=== PATIENT | male | born 1985 | race Caucasian/White ===

== ENCOUNTER 2023-02-22 14:10 | Emergency (ER) | payer SELFPAY ==
[2023-02-22 14:12] VITALS: BP 146/84; PULSE 58; RESP 18; TEMP 36.7; O2SAT 99; BMI 25.8
--- NOTE | 2023-02-22 14:28 | EXP.UTC ---
Discharge Plan Disposition Patient Disposition: Home, Self-Care Condition: Good Prescriptions Prescriptions: New azithromycin [Zithromax] 250 mg tablet 250 mg PO UD DOSE PK Qty: 6 0RF Rx Instructions: Take two (2) tablets today, then one (1) tablet days #2 thru #5 benzonatate [benzonatate] 100 mg capsule 100 mg PO TIDP PRN (Reason: Cough) Qty: 30 0RF ondansetron 4 mg Tablet,Disintegrating 4 mg PO Q8H PRN (Reason: Nausea) Qty: 12 0RF Referrals Follow up/Referrals: Provider,Referral, MD [Primary Care Provider] - See instructions Activity Restrictions/Add. Instructions Additional Instructions/Restrictions: Drink plenty of fluids. Take tylenol or ibuprofen for pain or fever. Take the medications as directed. Follow up with your regular doctor. GO TO THE ER FOR ANY WORSENING SYMPTOMS Clinical Impressions Clinical Impression: Sinusitis, Acute viral syndrome Stand Alone Forms Stand Alone Forms: Work/School Release Instructions Patient Instructions: Sinusitis, DI for Sinusitis, DI for Viral Syndrome Discharge ED Provider: Dennys Chen [facility] General Stated complaint: cough, Diarrhea, Runny nose and LAMBERT Time Seen by Provider: 02/22/23 14:28 History of Present Illness Provider Complaint: He states that he has had sinus congestion, sore throat, malaise, body aches and chills for the past 2 days. Related Data Previous Rx's Medication Instructions Recorded azithromycin 250 mg tablet 250 mg PO UD DOSE PK #6 tabs 02/22/23 (Zithromax) benzonatate 100 mg capsule 100 mg PO TIDP PRN Cough #30 caps 02/22/23 ondansetron 4 mg disintegrating 4 mg PO Q8H PRN Nausea #12 tabs 02/22/23 tablet Allergies Allergy/AdvReac Type Severity Reaction Status Date / Time No Known Allergies Allergy Verified 02/22/23 14:34 [facility] Disclaimer: The information contained in this section may have been updated after the patient was seen, as this information can be updated by other users. Social History Smoking Status: Former smoker alcohol intake: never current occupational status: employed Travel in the last 8 weeks: None ROS Obtained: Yes All systems reviewed & no additional complaints except as documented Constitutional Constitutional: Reports chills and Reports fever(s) Eyes Eyes: Denies eye discharge ENT Ears, Nose, Mouth, and Throat: Reports as per HPI Cardiovascular Cardiovascular: Denies chest pain Respiratory Respiratory: Denies chest congestion and Reports cough Gastrointestinal Gastrointestingal: Reports nausea; Denies abdominal pain, constipation, cramping, diarrhea or vomiting Musculoskeletal Musculoskeletal: Denies arthralgias Integumentary/Breasts Skin/Breast: Denies rash Neurologic Neurologic: Denies paresthesias Physical Exam General General appearance: alert and in no apparent distress Head Head exam: atraumatic, normocephalic and normal inspection Eye Eye exam: Present normal appearance, PERRL and EOMI ENT ENT exam: Present normal exam, normal oropharynx, mucous membranes moist, TM's normal bilaterally and normal external ear exam Neck Neck exam: Present normal inspection, full ROM and trachea midline; Absent meningismus or lymphadenopathy Chest Chest inspection: Present normal inspection and symmetric chest wall rise; Absent tenderness Respiratory Respiratory exam: Present normal lung sounds bilaterally; Absent respiratory distress Cardiovascular Cardiovascular exam: Present regular rate and normal rhythm; Absent JVD Abdominal Exam Abdominal exam: Present soft and normal bowel sounds; Absent distention, tenderness or guarding Extremities Exam Extremities exam: Present normal inspection, full ROM and normal capillary refill; Absent calf tenderness Back Exam Back exam: Present normal inspection; Absent tenderness Neurological Exam Neurological exam: Present alert and oriented X3 Psychiatric Psychiatric exam: Present normal affect and normal mo
[2023-02-22 15:20] VITALS: BP 146/84; PULSE 58; RESP 18; TEMP 36.7; O2SAT 99
== END 2023-02-22 15:21 | disposition home or self-care (01) ==
PROVIDERS: Emergency Provider Nurse Practitioner Family
DX: U07.1 COVID-19 (principal); J01.90 Acute sinusitis, unspecified; R53.81 Other malaise; Z87.891 Personal history of nicotine dependence
CPT/HCPCS: 99204; 99212; G0463

== ENCOUNTER 2023-10-02 22:24 | Emergency (ER) | payer SELFPAY ==
[2023-10-02 22:28] VITALS: BP 122/86; PULSE 97; RESP 18; TEMP 36.8; O2SAT 98; BMI 30.5
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
[2023-10-02] MEDS: KETOROLAC 30MG/ML VIAL 30 MG IM (22:53)
[2023-10-02] MEDS: OXYCODONE 5MG IMMEDIATE RELEASE TABLET 5 MG PO (22:54)
[2023-10-02] MEDS: ACETAMINOPHEN 500MG TAB 1000 MG PO (22:54)
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
[2023-10-02] MEDS: TET/DIPHTH/PERT-ADULT 0.5ML SYRINGE 0.5 ML IM (23:41)
[2023-10-03 00:18] VITALS: BP 133/77; PULSE 74; RESP 20; TEMP 36.8; O2SAT 98
== END 2023-10-03 00:28 | disposition home or self-care (01) ==
PROVIDERS: Emergency Provider Emergency Medicine; PCP Nurse Practitioner Family
DX: S52.515A Nondisplaced fracture of left radial styloid process, initial encounter for closed fracture (principal); S80.12XA Contusion of left lower leg, initial encounter; F17.210 Nicotine dependence, cigarettes, uncomplicated; V86.56XA Driver of dirt bike or motor/cross bike injured in nontraffic accident, initial encounter; Z23 Encounter for immunization
CPT/HCPCS: 29125; 73080; 73090; 73110; 73130; 73502; 73552; 73562; 73590; 73610; 90471; 90715; 96372; 99285

== ENCOUNTER 2023-10-05 14:44 | Outpatient (CLI) | payer SELFPAY | END 2023-10-05 23:59 | LOC: RAD 14:45 | PROVIDERS: PCP Nurse Practitioner Family; Visit Provider Orthopaedic Surgery | DX: M25.532 Pain in left wrist (principal) ==

== ENCOUNTER 2023-10-14 15:37 | Outpatient (CLI) | payer OTHER, SELFPAY ==
[2023-10-14 15:47] LABS: Basophils # 0.1 K/mm3 (0-0.2); Eosinophils # 0.3 K/mm3 (0.0-0.4); Eosinophils % 3.5 % (0.1-12.0); Hematocrit 44.2 % (42.0-52.0); Hemoglobin 14.9 g/dL (14.1-18.0); Lymphocytes # 3.2 K/mm3 (0.7-4.5); Lymphocytes % 34.8 % (10-50); Mean Corpuscular HGB Conc 33.7 g/dL (31.8-35.4); Mean Corpuscular Hemoglobin 30.9 pg (27.0-31.2); Mean Corpuscular Volume 91.6 fl (80-94); Mean Platelet Volume 7.8 fl (7.4-10.4); Monocytes # 0.5 K/mm3 (0.1-1.0); Monocytes % 5.9 % (1.7-9.3); Neutrophils % 54.9 % (37.0-80.0); Platelet Count 331 K/mm3 (142-424); Red Blood Count 4.83 M/mm3 (4.60-6.20); Red Cell Distribution Width 13.3 % (11.5-17.5); White Blood Count 9.1 K/mm3 (4.8-10.8)
[2023-10-14 16:37] LABS: Alanine Aminotransferase 35 U/L (12-78); Albumin Level 4.3 g/dl (3.5-5.0); Albumin/Globulin Ratio 1.7 (1.1-1.8); Alkaline Phosphatase 83 U/L (38-126); Anion Gap 10.8 mEq/L (5-15); Aspartate Amino Transferase 37 U/L (17-59); Bilirubin,Total 0.3 mg/dl (0.2-1.3); Blood Urea Nitrogen 10 mg/dl (9-20); Calcium 9.9 mg/dl (8.4-10.2); Carbon Dioxide 28 mmol/L (22.0-30.0); Chloride 106 mmol/L (98-107); Chol/HDL Ratio 7.9 (1-3.5); Cholesterol 190 mg/dl (140-200); Estimated Glomerular Filt Rate 109 ml/min (>60); GFR (African American) 132 ML/MIN (>60); Globulin 2.6 g/dL (1.3-3.2); Glucose 110 mg/dl (74-100); HDL Cholesterol 24 mg/dl (40-60); Potassium 4.8 mmoL/L (3.5-5.1); Sodium 140 mmol/L (136-145); Total Protein,Serum 6.9 g/dl (6.3-8.2); Triglycerides 312 mg/dl (30-150); VLDL Cholesterol 62 mg/dL (0-40)
[2023-10-14 16:47] LABS: Direct LDL Cholesterol 100.25 mg/dL (100-129)
[2023-10-14 16:59] LABS: 25-OH Vitamin D, Total < 12.8 ng/mL (30-100)
[2023-10-14 17:03] LABS: Free T4 (Free Thyroxine) 1.03 ng/dl (0.78-2.19)
[2023-10-14 17:07] LABS: Hemoglobin A1C 5.7 % (4.0-6.0)
[2023-10-14 17:23] LABS: Thyroid Stimulating Hormone 1.87 uIU/mL (0.465-4.68)
[2023-10-14 17:42] LABS: Vitamin B12 694 pg/mL (239-931)
== END 2023-10-14 23:59 | disposition home or self-care (01) ==
LOC: LAB.DROPOF 15:37
PROVIDERS: PCP Nurse Practitioner Family; Visit Provider Nurse Practitioner Family
DX: R53.83 Other fatigue (principal); M79.605 Pain in left leg; M79.89 Other specified soft tissue disorders; E55.9 Vitamin D deficiency, unspecified; R73.9 Hyperglycemia, unspecified; S52.512A Displaced fracture of left radial styloid process, initial encounter for closed fracture; F17.210 Nicotine dependence, cigarettes, uncomplicated; V86.56XA Driver of dirt bike or motor/cross bike injured in nontraffic accident, initial encounter
CPT/HCPCS: 80053; 80061; 82306; 82607; 83036; 84439; 84443; 85025; 85378

== ENCOUNTER 2023-10-15 15:40 | Outpatient (CLI) | payer OTHER, SELFPAY ==
--- NOTE | 2023-10-15 15:45 | CT_ITS ---
FINAL REPORT TECHNIQUE: Axial imaging of the left wrist was obtained without contrast. Reformatted images were also obtained and reviewed. This study was performed with techniques to keep radiation doses as low as reasonably achievable (ALARA). Individualized dose reduction techniques using automated exposure control or adjustment of mA and/or kV according to the patient's size were employed. CLINICAL HISTORY: wrist fracture FINDINGS: There is a fracture at the base of the radial styloid extending to the radiocarpal joint. There is 3 mm of anterior displacement of the fracture fragment. There is also fracture of the proximal fourth metacarpal and a chip fracture of the proximal fifth metacarpal. A probable, nondisplaced fracture is seen of the proximal third metacarpal. IMPRESSION: Fractures as above. Reviewed, Interpreted and Dictated by Angel Win III, MD Transcribed by Rachel Martin Authenticated and [facility]
== END 2023-10-15 23:59 | disposition home or self-care (01) ==
LOC: RAD 15:40
PROVIDERS: PCP Nurse Practitioner Family; Visit Provider Physician Assistant Surgical
DX: M25.532 Pain in left wrist (principal); S62.102A Fracture of unspecified carpal bone, left wrist, initial encounter for closed fracture
CPT/HCPCS: 73200

== ENCOUNTER 2023-10-18 12:59 | Outpatient (CLI) | payer OTHER, SELFPAY ==
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
--- OUTSIDE RECORDS SUMMARY | 2023-10-18 13:01 | XMS_ITS ---
Author Name Unknown Address [address] [place] [address] Phone Organization [facility] Address [address] [place] [address] Phone Care Team Providers Care Development Architect Name Role Phone Prabhakar CARDENAS, Gustavo Red Unavailable [phone] NO, PCP Unavailable Unavailable Reason for Referral Date Encounter Description Provider Reason for Referral 01/20/22 FOLLOW UP/EST Josh Acosta PA-C Referral To Physician 09/11/21 Post Op Josh Acosta PA-C Refe rral To Physician 05/14/21 WC FOLLOW UP/EST Gustavo Radford MD Referral To Physician - see pcp for elevated BP 02/03/21 WC FOLLOW UP/EST Gustavo Radford MD Referral To Physician - see pcp for elevated BP 11/27/20 WC FOLLOW UP/EST Gustavo Radford MD Referral To Physician - see pcp for elevated BP 06/14/20 2ND OPINION Nabil Alford MD Referr al To Physician - to see pcp for bp ~ Problems Includes: Active, inactive, and resolved Problems All Visits Onset Date Resolved Date Provider Condition S tatus Joint Pain, Localized in the Shoulder 02/26/2020 Gustavo Radford MD Active Last Documented On 0 8:39AM ; [facility] Plan of Treatment Pending Tests Order Diagnosis Results Due Ordering P rovider Radiology - MRI MRI Shoulder 03/30/22 Gustavo Radford MD Last Documented On 2 1:13PM ; [facility] Instructions to patient Intervention and counseling on cessation of tobacco use Last Documented On 3 1:33PM ; [facility] Lose weight Last Documented On 3 1:33PM ; [facility] Intervention and counseling on cessation of tobacco use Last Documented On 2 10:06AM ; [facility] Lose weight Last Documented On 2 10:06AM ; [facility] Intervention and counseling on cessation of tobacco use Last Documented On 2 9:39AM ; [facility] Lose weight Last Documented On 2 9:39AM ; [facility] Intervention and counseling on cessation of tobacco use Last Documented On 2 2:50PM ; [facility] Lose weight Last Documented On 2 2:50PM ; [facility] Intervention and counseling on cessation of tobacco use Last Documented On 2 12:52PM ; [facility] Lose weight Last Documented On 2 12:52PM ; [facility] Intervention and counseling on cessation of tobacco use Last Documented On 2 10:43AM ; [facility] Lose weight Last Documented On 2 10:43AM ; [facility] Intervention and counseling on cessation of tobacco use Last Documented On 2 9:35AM ; [facility] Lose weight Last Documented On 2 9:35AM ; [facility] Intervention and counseling on cessation of tobacco use Last Documented On 2 1:53PM ; [facility] Lose weight Last Documented On 2 1:47PM ; [facility] Lose weight Last Documented On 1 10:40AM ; [facility] Lose weight Last Documented On 1 10:27AM ; [facility] Lose weight Last Documented On 1 8:39AM ; [facility] Intervention and counseling on cessation of tobacco use Last Documented On 0 10:09AM ; [facility] Lose weight Last Documented On 0 3:45PM ; [facility] Assessments Includes: Assessments for all patient encounters No Assessments Recorded Instructions Includes: Instructions for all patient encounters Instructions to patient Intervention and counseling on cessation of tobacco use Last Documented On 3 1:33PM ; [facility] Lose weight Last Documented On 3 1:33PM ; [facility] Intervention and counseling on cessation of tobacco use Last Documented On 2 10:06AM ; [facility] Lose weight Last Documented On 2 10:06AM ; [facility] Intervention and counseling on cessation of tobacco use Last Documented On 2 9:39AM ; [facility] Lose weight Last Documented On 2 9:39AM ; [facility] Intervention and counseling on cessation of tobacco use Last Documented On 2 2:50PM ; [facility] Lose weight Last Documented On 2 2:50PM ; [facility] Intervention and counseling on cessation of tobacco use Last Documented On 2 12:52PM ; [facility] Lose weight Last Documented On 2 12:52PM ; [facility] Intervention and counseling on cessation of tobacco use Last Documented On 2 10:43AM ; [facility] Lose weight Last Documented On 2 10:43AM ; [facility] Intervention and counseling on cessation of tobacco use Last Documented On 2 9:35AM ; [facility] Lose weight Last Documented On 2 9:35AM ; [facility] Intervention and counseling on cessation of tobacco use Last Documented On 2 1:53PM ; [facility] Lose weight Last Documented On 2 1:47PM ; [facility] Lose weight Last Documented On 1 10:40AM ; [facility] Lose weight Last Documented On 1 10:27AM ; [facility] Lose weight Last Documented On 1 8:39AM ; [facility] Intervention and counseling on cessation of tobacco use Last Documented On 0 10:09AM ; [facility] Lose weight Last Documented On 0 3:45PM ; [facility] Medical Equipment - Implanted Devices Includes: Current and historical Devices No Medical Equipment Recorded Medications Includes: Current and historical Medications Current Medications (continue as prescribed) Gabapentin 300 MG Oral Capsule 12/18/2021 Provider: Diagnosis: Last Documented On 2 1:04PM By Naz Kerr ; [facility] Meloxicam 15 MG Oral Tablet 09/25/2021 Provider: Gustavo Radford MD Diagnosis: Last Documented On 2 1:04PM By Naz Kerr ; [facility] Gabapentin 300 MG Oral Capsule 11/27/2020 Provider: Diagnosis: Last Documented On 1 8:37AM By Sophia Garrido ; [facility] Past Medications on file Mobic 15 MG Oral Tablet 09/25/2021 - 10/25/2021 Provid er: Gustavo Radford MD Diagnosis: 1 TABLET BY MOUTH ONCE A DAY Last Documented On 2 3:29PM By Sophia Garrido ; [facility] Cyclobenzaprine HCl 10 MG Or al Tablet 09/11/2021 - 10/11/2021 Provider: Josh arzate PA-C Diagnosis: 1 PO TID Last Documented On 2 9:49AM By Shazia Tesfaye ; [facility] HYDROcodone-Acetaminophen 5- 325 MG Oral Tablet 09/11/2021 - 09/21/2021 Provider: Gustavo Radford MD Diagnosis: three times a day Last Documented On 2 10:51AM By Gustavo Radford ; [facility] Ondansetron HCl 4 MG Oral Tablet 08/26/2021 - 09/05/2021 Provider: Gustavo ortiz MD Diagnosis: 1 q 8 hours prn post op nausea Last Documented On 2 7:22AM By Gustavo Radford ; [facility] oxyCODONE HCl 5 MG Oral Tablet 08/26/2021 - 08/31/2021 Provider: Gustavo ortiz MD Diagnosis: 1-2 po q 4-6h prn post op pain Last Documented On 2 7:22AM By Gustavo Radford ; [facility] Medications Administered Includes: Administered Medications in patient's chart No Administered Medications Recorded Results Includes: Results from 10/17/2022 through 10/18/2023 No Results Recorded For Specified Dates History of Present Illness History of Present Illness not supported for this document type No History of Present Illness Recorded Social History Description Last Updated Tobacco use 03/16/2022 Last Documented On 2 1:13PM ; [facility] Is a smoker 01/20/2022 Last Documented On 2 1:22PM ; [facility] Caffeine use 01/20/2022 Last Documented On 2 1:22PM ; [facility] No recent change in diet 01/20/2022 Last Documented On 2 1:22PM ; [facility] Not exercising regularly 01/20/2022 Last Documented On 2 1:22PM ; [facility] Not using alcohol 01/20/2022 Last Documented On 2 1:22PM ; [facility] Not using drugs 01/20/2022 Last Documented On 2 1:22PM ; [facility] Smoker 01/20/2022 Last Documented On 2 1:22PM ; [facility] Yes, current smoker. 01/20/2022 Last Documented On 2 1:22PM ; [facility] No recent change in diet 02/26/2020 Last Documented On 0 9:14AM ; [facility] Yes, current smoker. 02/26/2020 Last Documented On 0 9:14AM ; [facility] Smoking Status Unknown Medical History Includes: Medical History in patient's chart Description Last Updated No recent immunization for flu 2 Last Documented On 2 1:22PM ; [facility] No recent immunization for pneumococcal pneumonia 01/20/2022 Last Documented On 2 1:22PM ; [facility] Past medical and surgical history non-co ntributory 07/28/2021 Last Documented On 2 9:28AM ; [facility] Past Surgical History: closed rhinoplast y 06/14/2020 Last Documented On 0 2:20PM ; [facility] Past medical history non-contributory Last Documented On 0 9:14AM ; [facility] Family History Includes: Family History in patient's chart Description Last Updated Diabetes mellitus 07/28/2021 Last Documented On 2 9:28AM ; [facility] No significant family history 02/26/2020 Last Documented On 0 9:14AM ; [facility] Review of Systems Review of Systems not supported for this document type No Review of Systems Recorded Mental Status Description No anxiety Functional Status No Functional Status Recorded Physical Exam Physical Exam not supported for this document type No Physical Exam Recorded Immunizations Includes: Immunizations in patient's chart Vaccine Dose # Date Site Reaction(s) Status Source Influenza 1 11/27/2020 Complete (Refused - Patient objection) [facility] Last Documented On 1 8:37AM ; [facility] PCV (Pneumovax 23) 1 11/27/2020 Complete (Refused - Patient objection) [facility] Last Documented On 1 8:37AM ; [facility] Td 1 11/27/2020 Complete (Refused - Patient objection) [facility] Last Documented On 1 8:37AM ; [facility] Allergies Includes: Active, inactive, and resolved Allergies No Known Allergies Insurance Includes: Active Insurance Policies Plan Name Member ID Group # Subscriber Relationship Effect lori Dates 1 - [employer] [id number] Ronan Jensen 06/06/2019 - Unknown 2 [facility] [id number] Ronan Jensen 06/06/2019 - Unknown 3 - [employer] [id number] Ronan Tamayo [facility] 08/2018 - Unknown Clinical Notes Includes: Signed Clinical Notes starting from 06/18/2022 No Clinical Notes Recorded
--- OUTSIDE RECORDS SUMMARY | 2023-10-18 13:02 | XMS_ITS | Clinical Summary ---
Author Name Unknown Address [address] [place] [address] Phone Organization [facility] Address [address] [place] [address] Phone Care Team Providers Care Slot Supervisor Name Role Phone Prabhakar CARDENAS, Gustavo Red Unavailable [phone] NO, PCP Unavailable Unavailable Reason for Visit and Chief Complaint The Chief Complaint is: Left shoulder pain Problems Includes: Problems addressed during this encounter and other active Problems All Visits Onset Date Resolved Date Provider Condition S tatus Joint Pain, Localized in the Shoulder 02/26/2020 Gustavo Radford MD Active Last Documented On 0 8:39AM ; [facility] Plan of Treatment we will order an FCE for him. He was scheduled to see Dr. Radford for follow-up. Work status restrictions were updated. He said he did not get any long-standing significant relief from the injection. 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 tenodesis - Last Documented On 06/08/2022 12:08PM ; [facility] Instructions Includes: Instructions from this encounter Instructions to patient Intervention and counseling on cessation of tobacco use Last Documented On 2 10:06AM ; [facility] Lose weight Last Documented On 2 10:06AM ; [facility] Medical Equipment - Implanted Devices Includes: Current Devices No Medical Equipment Recorded Medications Includes: Medications discussed during this encounter and other current Medications Current Medications (continue as prescribed) Gabapentin 300 MG Oral Capsule 12/18/2021 Provider: Diagnosis: Last Documented On 2 1:04PM By Naz Kerr ; [facility] Meloxicam 15 MG Oral Tablet 09/25/2021 Provider: Gustavo Radford MD Diagnosis: Last Documented On 2 1:04PM By Naz Kerr ; [facility] Gabapentin 300 MG Oral Capsule 11/27/2020 Provider: Diagnosis: Last Documented On 1 8:37AM By Sophia Garrido ; [facility] Past Medications on file Mobic 15 MG Oral Tablet 09/25/2021 - 10/25/2021 Provid er: Gustavo Radford MD Diagnosis: 1 TABLET BY MOUTH ONCE A DAY Last Documented On 2 3:29PM By Sophia Garrido ; [facility] Cyclobenzaprine HCl 10 MG Or al Tablet 09/11/2021 - 10/11/2021 Provider: Josh arzate PA-C Diagnosis: 1 PO TID Last Documented On 2 9:49AM By Shazia Tesfaye ; [facility] HYDROcodone-Acetaminophen 5- 325 MG Oral Tablet 09/11/2021 - 09/21/2021 Provider: Gustavo Radford MD Diagnosis: three times a day Last Documented On 2 10:51AM By Gustavo Radford ; [facility] Ondansetron HCl 4 MG Oral Tablet 08/26/2021 - 09/05/2021 Provider: Gustavo ortiz MD Diagnosis: 1 q 8 hours prn post op nausea Last Documented On 2 7:22AM By Gustavo Radford ; [facility] oxyCODONE HCl 5 MG Oral Tablet 08/26/2021 - 08/31/2021 Provider: Gustavo ortiz MD Diagnosis: 1-2 po q 4-6h prn post op pain Last Documented On 2 7:22AM By Gustavo Radford ; [facility] Medications Administered Includes: Administered Medications from this encounter No Administered Medications Recorded Vital Signs Includes: Vital Signs from this encounter Vital Name 06/08/2022 10:06A Blood Pressure Sitting (mmHg) 102/80 Pulse Rate-Sitting (bpm) 71 Height (in) 67 Weight (lb) 186 Body Mass Index (kg/m2) 29.1 Body Surface Area (m2) 2.0 Note: hdv Last Documented: On 06/08/2022 10:07A M ; [facility] Results Includes: Results discussed during this encounter No Results Recorded For Specified Dates History of Present Illness Includes: History of Present Illness from this encounter HPI Ronan Tamayo is a 36 year old male. - Symptoms Catching, pain better: relaxing it Pain worse: moving, trying to lift or strenuous activity. - Allergy list reviewed - Problem list reviewed - Medication list reviewed - Previous history of new onset pain 07/03/2019 Work Injury - Patient pain level from 1-10: 7 - Yes, previous treatment. - History of Physical Therapy - History of Injections Medications used for this condition: Social History Description Last Updated Tobacco use 03/16/2022 Last Documented On 2 10:06AM ; [facility] Is a smoker 01/20/2022 Last Documented On 2 10:06AM ; [facility] Caffeine use 01/20/2022 Last Documented On 2 10:06AM ; [facility] No recent change in diet 01/20/2022 Last Documented On 2 10:06AM ; [facility] Not exercising regularly 01/20/2022 Last Documented On 2 10:06AM ; [facility] Not using alcohol 01/20/2022 Last Documented On 2 10:06AM ; [facility] Not using drugs 01/20/2022 Last Documented On 2 10:06AM ; [facility] Smoker 01/20/2022 Last Documented On 2 10:06AM ; [facility] Yes, current smoker. 01/20/2022 Last Documented On 2 10:06AM ; [facility] No recent change in diet 02/26/2020 Last Documented On 2 10:06AM ; [facility] Yes, current smoker. 02/26/2020 Last Documented On 2 10:06AM ; [facility] Smoking Status Unknown Procedures and Surgical History Includes: Procedures from this encounter Procedures Code Diagnosis Performing Provider Service L ocation Service Date intervention and counseling on cessation of tobacco use 4000F Last Documented On 2 10:06AM ; [facility] use of tobacco assessment performed 1000F Last Documented On 2 10:06AM ; [facility] follow-up visit not in one month with PC P for elevated BP Last Documented On 2 10:06AM ; [facility] EMG was performed 05670 Last Documented On 2 10:06AM ; [facility] an X-ray was performed 46213 Last Documented On 2 10:06AM ; [facility] a CT scan was performed 63978 Last Documented On 2 10:06AM ; [facility] an MRI was performed [id number] Last Documented On 2 10:06AM ; [facility] Medical History Includes: Medical History addressed during this encounter Description Last Updated No recent immunization for flu Last Documented On 2 10:06AM ; [facility] No recent immunization for pneumococcal pneumonia 01/20/2022 Last Documented On 2 10:06AM ; [facility] Past medical and surgical history non-co ntributory 07/28/2021 Last Documented On 2 10:06AM ; [facility] Past Surgical History: closed rhinoplast y 06/14/2020 Last Documented On 2 10:06AM ; [facility] Past medical history non-contributory Last Documented On 2 10:06AM ; [facility] Family History Includes: Family History addressed during this encounter Description Last Updated Diabetes mellitus 07/28/2021 Last Documented On 2 10:06AM ; [facility] No significant family history 02/26/2020 Last Documented On 2 10:06AM ; [facility] Review of Systems Includes: Review of Systems from this encounter Systemic: Not feeling tired, no recent weight loss, and no recent weight gain. Head: No headache and no sinus pain. Eyes: No vision problems, no Cataracts, no Glasses/Contacts, and no Glaucoma. Otolaryngeal: No hearing loss and no tinnitus. Cardiovascular: No chest pain or discomfort, no palpitations, no Hypertension, and no High Cholesterol. Pulmonary: No daytime asthma symptoms and no chronic cough. No wheezing. Gastrointestinal: No heartburn and no abdominal pain. No Indigestion, no Acid Reflux, no Peptic Ulcer, no GI Stomach Bleed, and no Ulcers. Endocrine: No hot flashes, no muscle weakness, no Diabetes, no Hypothyroid, and no Hyperthyroid. Hematologic: No easy bleeding, no tendency for easy bruising, and no Anemia. Musculoskeletal: No Arthritis and no lower back pain. No soft tissue swelling and no localized joint pain. Neurological: No dizziness, no convulsions, and no numbness. Psychological: No anxiety, no emotional lability, no depression, and no insomnia. Not crying for no reason. Skin: No dry skin. No Ulcers. Scars. No rash. Allergic and Immunologic: No complaint of seasonal allergic reaction. Mental Status Includes: Mental Status from this encounter Description No anxiety Functional Status Includes: Functional Status from this encounter No Functional Status Recorded Physical Exam Includes: Physical Exam from this encounter Allergies Includes: Active Allergies No Known Allergies Encounters Encounter Provider Location Date Check-In Time Check-Out Time Diagnosis WC FOLLOW UP/EST Josh Acosta PA-C [facility] 06/08/20 22 9:58AM 10:11AM Insurance Includes: Active Insurance Policies Plan Name Member ID Group # Subscriber Relationship Effect lori Dates 1 - [employer] [id number] Ronan Jensen 06/06/2019 - Unknown 2 - [employer] [id number] Ronan Jensen 06/06/2019 - Unknown 3 - [employer] [id number] Ronan Tamayo Self 08/2018 - Unknown Clinical Notes Includes: Clinical Notes from this encounter No Clinical Notes Recorded
--- OUTSIDE RECORDS SUMMARY | 2023-10-18 13:02 | XMS_ITS | Clinical Summary ---
Author Name Unknown Address [address] [place] [address] Phone Organization [facility] , [facility] Address [address] [place] [address] Phone Care Team Providers Care Head Gauge Unit Operator Name Role Phone Prabhakar CARDENAS, Gustavo Red Unavailable [phone] NO, PCP Unavailable Unavailable Reason for Visit and Chief Complaint The Chief Complaint is: Left shoulder pain Problems Includes: Problems addressed during this encounter and other active Problems All Visits Onset Date Resolved Date Provider Condition S tatus Joint Pain, Localized in the Shoulder 02/26/2020 Gustavo Radford MD Active Last Documented On 0 8:39AM ; [facility] Plan of Treatment NON SURGICAL PLAN: I reviewed the MRI images with the patient. His job requires heavy duty demand. We had a discussion about treatment options today. I believe he would benefit from a corticosteroid injection into his shoulder to help with symptoms. He is understanding and wishes to proceed. We will see him back as scheduled for reassessment. His work status will remain the same. All questions have been answered at this time. INJECTION: intra articular - Last Documented On 05/14/2022 12:59PM ; [facility] 2 CC LIDOCAINE, 2 CC MARCAINE, 1 CC KENALOG (40 MG) The risk and benefits of the injection were outlined to the patient. They understand these and wished to proceed. The anterior portion of the shoulder over the glenohumeral joint was prepped with alcohol and Betadine. Using a 27-gauge needle and 5 cc syringe I pierced the skin breaching the anterior joint capsule. I then aspirated to confirm no presence of a vascular bed I then injected a solution of 40 mg Kenalog / 2 cc of lidocaine/2 cc of Marcaine into the joint. The patient tolerated this procedure well. - Last Documented On 05/14/2022 12:59PM ; [facility], [facility] Pending Tests Order Diagnosis Results Due Ordering Davie guillen Radiology - MRI MRI Shoulder 03/30/22 Gustavo Radford MD Last Documented On 2 1:13PM ; [facility], [facility] Instructions to patient Intervention and counseling on cessation of tobacco use Last Documented On 2 9:39AM ; [facility], [facility] Lose weight Last Documented On 9:39AM ; [facility], [facility] Assessments Includes: Assessments from this encounter Findings Left shoulder status post biceps - Last Documented On 05/14/2022 12:59PM ; [facility], [facility] Instructions Includes: Instructions from this encounter Instructions to patient Intervention and counseling on cessation of tobacco use Last Documented On 9:39AM ; [facility], [facility] Lose weight Last Documented On 2 9:39AM ; [facility], [facility] Medical Equipment - Implanted Devices Includes: Current Devices No Medical Equipment Recorded Medications Includes: Medications discussed during this encounter and other current Medications Current Medications (continue as prescribed) Gabapentin 300 MG Oral Capsule 12/18/2021 Provider: Diagnosis: Last Documented On 2 1:04PM By Naz [facility] Meloxicam 15 MG Oral Tablet 09/25/2021 Provider: Gustavo Radford MD Diagnosis: Last Documented On 2 1:04PM By Naz [facility] Gabapentin 300 MG Oral Capsule 11/27/2020 Provider: Diagnosis: Last Documented On 1 8:37AM By Sophia [facility] Past Medications on file Mobic 15 MG Oral Tablet 09/25/2021 - 10/25/2021 Provid er: Gustavo Radford MD Diagnosis: 1 TABLET BY MOUTH ONCE A DAY Last Documented On 2 3:29PM By Sophia [facility], [facility] Cyclobenzaprine HCl 10 MG Or al Tablet 09/11/2021 - 10/11/2021 Provider: Josh arzate PA-C Diagnosis: 1 PO TID Last Documented On 2 9:49AM By Shazia Tesfaye ; [facility], [facility] HYDROcodone-Acetaminophen 5- 325 MG Oral Tablet 09/11/2021 - 09/21/2021 Provider: Gustavo Radford MD Diagnosis: three times a day Last Documented On 2 10:51AM By Gustavo Gerard [facility], [facility] Ondansetron HCl 4 MG Oral Tablet 08/26/2021 - 09/05/2021 Provider: Gustavo ortiz MD Diagnosis: 1 q 8 hours prn post op nausea Last Documented On 2 7:22AM By Gustavo Radford ; [facility] oxyCODONE HCl 5 MG Oral Tablet 08/26/2021 - 08/31/2021 Provider: Gustavo ortiz MD Diagnosis: 1-2 po q 4-6h prn post op pain Last Documented On 2 7:22AM By Gustavo Gerard [facility], [facility] Medications Administered Includes: Administered Medications from this encounter No Administered Medications Recorded Vital Signs Includes: Vital Signs from this encounter Vital Name 04/27/2022 09:44A Blood Pressure Sitting (mmHg) 98/68 Pulse Rate-Sitting (bpm) 70 Height (in) 67 Weight (lb) 186 Body Mass Index (kg/m2) 29.1 Body Surface Area (m2) 2.0 Note: cb Last Documented: On 04/27/2022 9:45AM ; [facility], [facility] Results Includes: Results discussed during this encounter No Results Recorded For Specified Dates History of Present Illness Includes: History of Present Illness from this encounter CANDACE Tamayo is a 36 year old male. [...] of Injections Medications used for this condition: 36 year old male presents today for follow up on his left shoulder. This is a work comp claim. He had a recent MRI of his shoulder and is here to go over the results. Social History Description Last Updated Tobacco use 03/16/2022 Last Documented On 2 9:39AM ; [facility] Is a smoker 01/20/2022 Last Documented On 2 9:39AM ; [facility] Caffeine use 01/20/2022 Last Documented On 2 9:39AM ; [facility] No recent change in diet 01/20/2022 Last Documented On 2 9:39AM ; [facility] Not exercising regularly 01/20/2022 Last Documented On 2 9:39AM ; [facility] Not using alcohol 01/20/2022 Last Documented On 2 9:39AM ; [facility] Not using drugs 01/20/2022 Last Documented On 2 9:39AM ; [facility] Smoker 01/20/2022 Last Documented On 2 9:39AM ; [facility] Yes, current smoker. 01/20/2022 Last Documented On 2 9:39AM ; [facility] No recent change in diet 02/26/2020 Last Documented On 2 9:39AM ; [facility] Yes, current smoker. 02/26/2020 Last Documented On 2 9:39AM ; [facility] Smoking Status Unknown Procedures and Surgical History Includes: Procedures from this encounter Procedures Code Diagnosis Performing Provider Service L ocation Service Date intervention and counseling on cessation of tobacco use 4000F Last Documented On 2 9:39AM ; [facility] use of tobacco assessment performed 1000F Last Documented On 2 9:45AM ; [facility] follow-up visit not in one month with PC P for elevated BP Last Documented On 2 9:39AM ; [facility] EMG was performed 10417 Last Documented On 2 9:39AM ; [facility] an X-ray was performed 36648 Last Documented On 2 9:39AM ; [facility] a CT scan was performed 50057 Last Documented On 2 9:39AM ; [facility] an MRI was performed 64220 Last Documented On 2 9:39AM ; [facility] Medical History Includes: Medical History addressed during this encounter Description Last Updated No recent immunization for flu 2 Last Documented On 2 9:39AM ; [facility] No recent immunization for pneumococcal pneumonia 01/20/2022 Last Documented On 2 9:39AM ; [facility] Past medical and surgical history non-co ntributory 07/28/2021 Last Documented On 2 9:39AM ; [facility] Past Surgical History: closed rhinoplast y 06/14/2020 Last Documented On 2 9:39AM ; [facility] Past medical history non-contributory Last Documented On 2 9:39AM ; [facility] Family History Includes: Family History addressed during this encounter Description Last Updated Diabetes mellitus 07/28/2021 Last Documented On 2 9:39AM ; [facility] No significant family history 02/26/2020 Last Documented On 2 9:39AM ; [facility] Review of Systems Includes: Review of [...] Time Check-Out Time Diagnosis WC FOLLOW UP/EST Gustavo Radford MD [facility] 04/27/20 22 9:29AM 10:08AM Insurance Includes: Active Insurance Policies Plan Name Member ID Group # Subscriber Relationship Effect lori Dates 1 - [facility] [id number] Ronan Tamayo [facility] 06/06/2019 - Unknown 2 - [facility] [id number] Ronan Tamayo [facility] 06/06/2019 - Unknown 3 - [facility] [id number] Ronan Tamayo [facility] 08/2018 - Unknown Clinical Notes Includes: Clinical Notes from this encounter No Clinical Notes Recorded
--- OUTSIDE RECORDS SUMMARY | 2023-10-18 13:02 | XMS_ITS | Clinical Summary ---
Author Name Unknown Address [address] [place] [address] Phone Organization [facility] , [facility] Address [address] [place] [address] Phone Care Team Providers Care Cleaning Associate Name Role Phone Prabhakar CARDENAS, Gustavo Red Unavailable [phone] NO, PCP Unavailable Unavailable Reason for Visit and Chief Complaint The Chief Complaint is: Left shoulder pain Problems Includes: Problems addressed during this encounter and other active Problems All Visits Onset Date Resolved Date Provider Condition S tatus Joint Pain, Localized in the Shoulder 02/26/2020 Gustavo Radford MD Active Last Documented On 0 8:39AM ; [facility] Plan of Treatment NON SURGICAL PLAN: I reviewed the xays performed today in the office. After going through the physical exam, he is painful with with rotator cuff testing. I would like to get a repeat MRI of his left shoulder to better understands the anatomy. His work status will remain the same until his follow up. TEST ORDERED: MRI Left Shoulder - Last Documented On 03/20/2022 1:13PM ; [facility] Pending Tests Order Diagnosis Results Due Ordering Davie guillen Radiology - MRI MRI Shoulder 03/30/22 Gustavo Radford MD Last Documented On 2 1:13PM ; [facility] Instructions to patient Intervention and counseling on cessation of tobacco use Last Documented On 2 2:50PM ; [facility], [facility] Lose weight Last Documented On 2 2:50PM ; [facility] Assessments Includes: Assessments from this encounter Findings Left shoulder status post biceps tenodesis - Last Documented On 03/20/2022 1:13PM ; [facility], [facility] Instructions Includes: Instructions from this encounter Instructions to patient Intervention and counseling on cessation of tobacco use Last Documented On 2 2:50PM ; [facility] Lose weight Last Documented On 2 2:50PM ; [facility], [facility] Medical Equipment - Implanted Devices Includes: Current Devices No Medical Equipment Recorded Medications Includes: Medications discussed during this encounter and other current Medications Current Medications (continue as prescribed) Gabapentin 300 MG Oral Capsule 12/18/2021 Provider: Diagnosis: Last Documented On 2 1:04PM By Naz Kerr ; [facility] Meloxicam 15 MG Oral Tablet 09/25/2021 Provider: Gustavo Radford MD Diagnosis: Last Documented On 2 1:04PM By Naz Kerr ; [facility] Gabapentin 300 MG Oral Capsule 11/27/2020 Provider: Diagnosis: Last Documented On 1 8:37AM By Sophia Garrido ; [facility] Past Medications on file Mobic 15 MG Oral Tablet 09/25/2021 - 10/25/2021 Provid er: Gustavo Radford MD Diagnosis: 1 TABLET BY MOUTH ONCE A DAY Last Documented On 2 3:29PM By Sophia Garrido ; [facility] Cyclobenzaprine HCl 10 MG Or al Tablet 09/11/2021 - 10/11/2021 Provider: Josh arzate PA-C Diagnosis: 1 PO TID Last Documented On 2 9:49AM By Shazia Tesfaye ; [facility] HYDROcodone-Acetaminophen 5- 325 MG Oral Tablet 09/11/2021 - 09/21/2021 Provider: Gustavo Radford MD Diagnosis: three times a day Last Documented On 2 10:51AM By Gustavo Radford ; [facility] Ondansetron HCl 4 MG Oral Tablet 08/26/2021 - 09/05/2021 Provider: Gustavo ortiz MD Diagnosis: 1 q 8 hours prn post op nausea Last Documented On 2 7:22AM By Gustavo Radford ; [facility] oxyCODONE HCl 5 MG Oral Tablet 08/26/2021 - 08/31/2021 Provider: Gustavo ortiz MD Diagnosis: 1-2 po q 4-6h prn post op pain Last Documented On 2 7:22AM By Gustavo Radford ; [facility] Medications Administered Includes: Administered Medications from this encounter No Administered Medications Recorded Vital Signs Includes: Vital Signs from this encounter Vital Name 03/16/2022 03:00P Blood Pressure Sitting (mmHg) 120/79 Pulse Rate-Sitting (bpm) 79 Height (in) 67 Weight (lb) 187 Body Mass Index (kg/m2) 29.3 Body Surface Area (m2) 2.0 Note: cb Last Documented: On 03/16/2022 3:00PM ; [facility] Results Includes: Results discussed during this encounter [...] used for this condition: 36 year old female presents for follow up on his left shoulder status post biceps tenodesis. This is a work comp claim. He struggles lifting weight because of wekaness in his Social History Description Last Updated Tobacco use 03/16/2022 Last Documented On 2 1:13PM ; [facility], [facility] Is a smoker 01/20/2022 Last Documented On 2 2:50PM ; [facility] Caffeine use 01/20/2022 Last Documented On 2 2:50PM ; [facility], [facility] No recent change in diet 01/20/2022 Last Documented On 2 2:50PM ; [facility] Not exercising regularly 01/20/2022 Last Documented On 2 2:50PM ; [facility], [facility] Not using alcohol 01/20/2022 Last Documented On 2 2:50PM ; [facility] Not using drugs 01/20/2022 Last Documented On 2 2:50PM ; [facility] Smoker 01/20/2022 Last Documented On 2 2:50PM ; [facility], [facility] Yes, current smoker. 01/20/2022 Last Documented On 2 2:50PM ; [facility] No recent change in diet 02/26/2020 Last Documented On 2 2:50PM ; [facility] Yes, current smoker. 02/26/2020 Last Documented On 2 2:50PM ; [facility], [facility] Smoking Status Unknown Procedures and Surgical History Includes: Procedures from this encounter Procedures Code Diagnosis Performing Provider Service L ocation Service Date intervention and counseling on cessation of tobacco use 4000F Last Documented On 2 2:50PM ; [facility] use of tobacco assessment performed 1000F Last Documented On 2 2:50PM ; [facility] patient not screened for future fall risk 3288F Last Documented On 2 2:50PM ; [facility], [facility] follow-up visit not in one month with PC P for elevated BP Last Documented On 2 2:50PM ; [facility] EMG was performed 55571 Last Documented On 2 4:04PM ; [facility] an X-ray was performed 51614 Last Documented On 2 2:50PM ; [facility] a CT scan was performed 87179 Last Documented On 2 2:50PM ; [facility] an MRI was performed 31473 Last Documented On 2 2:50PM ; [facility], [facility] Medical History Includes: Medical History addressed during this encounter Description Last Updated No recent immunization for flu 2 Last Documented On 2 2:50PM ; [facility] No recent immunization for pneumococcal pneumonia 01/20/2022 Last Documented On 2 2:50PM ; [facility], [facility] Past medical and surgical history non-co ntributory 07/28/2021 Last Documented On 2 2:50PM ; [facility] Past Surgical History: closed rhinoplast y 06/14/2020 Last Documented On 2 2:50PM ; [facility] Past medical history non-contributory Last Documented On 2 2:50PM ; [facility] Family History Includes: Family History addressed during this encounter Description Last Updated Diabetes mellitus 07/28/2021 Last Documented On 2 2:50PM ; [facility] No significant family history 02/26/2020 Last Documented On 2 2:50PM ; [facility] Review of Systems Includes: Review of Systems [...] Diagnosis WC FOLLOW UP/EST Gustavo Radford MD [facility] 03/16/20 2:38PM 3:07PM Insurance Includes: Active Insurance Policies Plan Name Member ID Group # Subscriber Relationship Effect lori Dates 1 - [employer] [id number] Ronan Tamayo Self 06/06/2019 - Unknown 2 - [employer] [id number] Ronan Tamayo [facility] 06/06/2019 - Unknown 3 - [employer] [id number] Ronan Tamayo Self 08/2018 - Unknown Clinical Notes Includes: Clinical Notes from this encounter No Clinical Notes Recorded
--- OUTSIDE RECORDS SUMMARY | 2023-10-18 13:02 | XMS_ITS | Clinical Summary ---
Author Name Unknown Address [address] [place] [address] Phone Organization [facility] , [facility] Address [address] [place] [address] Phone Care Team Providers Care Heavy Mobile Equipment Repairer Name Role Phone Prabhakar CARDENAS, Gustavo Red Unavailable [phone] NO, PCP Unavailable Unavailable Reason for Visit and Chief Complaint Outside Test Problems Includes: Problems addressed during this encounter and other active Problems All Visits Onset Date Resolved Date Provider Condition S tatus Joint Pain, Localized in the Shoulder 02/26/2020 Gustavo Radford MD Active Last Documented On 0 8:39AM ; [facility] Plan of Treatment No Plan of Treatment Recorded Assessments Includes: Assessments from this encounter No Assessments Recorded Medical Equipment - Implanted Devices Includes: Current Devices No Medical Equipment Recorded Medications Includes: Medications discussed during this encounter and other current Medications Current Medications (continue as prescribed) Gabapentin 300 MG Oral Capsule 12/18/2021 Provider: Diagnosis: Last Documented On 2 1:04PM By Naz NICOLE [facility] Meloxicam 15 MG Oral Tablet 09/25/2021 Provider: Gustavo Radford MD Diagnosis: Last Documented On 2 1:04PM By Naz [facility]ICO[facility] Gabapentin 300 MG Oral Capsule 11/27/2020 Provider: Diagnosis: Last Documented On 1 8:37AM By Sophia [facility], [facility] Medications Administered Includes: Administered Medications from this encounter No Administered Medications Recorded Results Includes: Results discussed during this encounter No Results Recorded For Specified Dates History of Present Illness Includes: History of Present Illness from this encounter No History of Present Illness Recorded Social History No Social History Recorded - Smoking Status Unknown Medical History Includes: Medical History addressed during this encounter No Medical History Recorded Family History Includes: Family History addressed during this encounter No Family History Recorded Review of Systems Includes: Review of Systems from this encounter No Review of Systems Recorded Mental Status Includes: Mental Status from this encounter No Mental Status Recorded Functional Status Includes: Functional Status from this encounter No Functional Status Recorded Physical Exam Includes: Physical Exam from this encounter No Physical Exam Recorded Allergies Includes: Active Allergies No Known Allergies Encounters Encounter Provider Location Date Check-In Time Check-Out Time Diagnosis Outside Test [facility] 3 1:00PM 11:59PM Insurance Includes: Active Insurance Policies Plan Name Member ID Group # Subscriber Relationship Effect lori Dates 1 - [employer] [id number] Ronan Tamayo [facility] 06/06/2019 - Unknown 2 - [employer] [id number] Ronan Tamayo [facility] 06/06/2019 - Unknown 3 - [employer] [id number] Ronan Tamayo [facility] 08/2018 - Unknown Clinical Notes Includes: Clinical Notes from this encounter No Clinical Notes Recorded
--- OUTSIDE RECORDS SUMMARY | 2023-10-18 13:02 | XMS_ITS | Continuity of Care Document ---
Author Name Unknown Organization [facility] Address [address] [place] [address] Phone Care Team Providers Care Buddhist Monk Name Role Phone Serge Lopez MD Unavailable Unavailable Allergies, Adverse Reactions, Alerts Substance Reaction Status Criticality No Known Allergies Active No Inform ation Medications Medication Instructions Dosage Effective Dates (start - stop) Status Comments DermacinRx Folitin-Z 9 mg iron-500 mcg tablet - Active gabapentin 300 mg capsule - Active Procedures Procedure Date Independant Medical Exam Medical Report/Narrative Advance Directives Directive Yes / No Effective Date File Name No Information Encounters Encounter Description Practice Location Reason(s) For Visit Diagnoses Date Provider Providers Copied on Encounter [facility], [facility], tel:[phone] [place] General orthopedic (chief complaint) No Information 2 John Valentine. [address] [place] [address], [facility], . tel:[phone] Referring Provider: Serge Roger, [address] [place] [address], [facility]. tel:[phone] [facility] [address], [facility], tel:[phone] Charli Genao general orthopedic (chief complaint) No Information 1 John Valentine. [address] [place] [address], [facility], . tel:[phone] Referring Provider: Serge Roger, [address] [place] [address], [facility]. tel:[phone] [facility], [address], [place], [address], [place] tel:[phone] Charli Mitchell No Information John Valentine. [address] [place] [address], [facility], . tel:[phone] Family History Family Member Type Diagnosis Age At Onset No Information Payers Payer name Insurance type Covered libertarian ID Authoriza tion(s) Self-Pay CI Social History Type Description Quantity Date Captured Comments Sex Male Smoking Status No Information Chief Complaint And Reason For Visit From encounter dated '06/10/2022 15:30'. General orthopedic (chief complaint). Description: ANN L shoulder Reason For Referral Reason For Referral No Information Plan Of Treatment Date Type Action Status Future Order: Radiology Order MR I Shoulder W Contrast ([id number]), Ordered on: Ordered History Of Present Illness Encounter Date Complaint History Of Prese nt Illness General orthopedic ANN L shoulde r general orthopedic ANN Functional Status Date Functional Assessmen t No Information Instructions Date Instruction Additional Infor mation No Information Assessments Type Assessment Date No Information Patient Care Teams Name Effective Dates (start - stop) Status Members No Information
== END 2023-10-18 23:59 | disposition home or self-care (01) ==
PROVIDERS: PCP Nurse Practitioner Family; Visit Provider Nurse Practitioner Family
DX: S80.12XA Contusion of left lower leg, initial encounter (principal)
CPT/HCPCS: 93971

== ENCOUNTER 2023-11-11 13:38 | Outpatient (CLI) | payer OTHER, SELFPAY ==
--- NOTE | 2023-11-11 13:42 | XR_ITS ---
FINAL REPORT CLINICAL HISTORY: F/U left wrist fx COMPARISON: 10/15/2023 FINDINGS: Left wrist Three views were obtained. There is a subacute appearing fracture involving the distal radius at the base of the radial styloid. There is mild impaction of the fracture fragments. The bony alignment is stable from prior CT. IMPRESSION: Stable fracture as above. Reviewed, Interpreted and Dictated by Angel Win III, MD Transcribed by Martina Soto Authenticated and [facility]
== END 2023-11-11 23:59 | disposition home or self-care (01) ==
LOC: RAD 13:40
PROVIDERS: PCP Nurse Practitioner Family; Visit Provider Orthopaedic Surgery
DX: M25.532 Pain in left wrist (principal); S62.102A Fracture of unspecified carpal bone, left wrist, initial encounter for closed fracture
CPT/HCPCS: 73110

== ENCOUNTER 2023-12-09 14:02 | Outpatient (CLI) | payer OTHER, SELFPAY ==
--- NOTE | 2023-12-09 14:05 | XR_ITS ---
FINAL REPORT CLINICAL HISTORY: lt wrist pain fracture 1 month ago patient states that it was a distal radius fx COMPARISON: 11/11/2023 FINDINGS: LEFT WRIST 3 views of the left wrist were obtained. There is a subacute-chronic fracture at the base of the radial styloid with fracture line still visible. Findings may represent delayed or nonunion. Alignment is stable. No other fracture is identified. The visualized joint spaces are normally aligned. The soft tissues are unremarkable. IMPRESSION: Subacute-chronic fracture at the base of the radial styloid with fracture line still visible. Findings may represent delayed union or nonunion. Reviewed, Interpreted and Dictated by Angel Win III, MD Transcribed by Rachel Martin Authenticated and . [facility]
== END 2023-12-09 23:59 | disposition home or self-care (01) ==
LOC: RAD 14:03
PROVIDERS: PCP Nurse Practitioner Family; Visit Provider Physician Assistant
DX: M25.532 Pain in left wrist (principal); S52.512D Displaced fracture of left radial styloid process, subsequent encounter for closed fracture with routine healing
CPT/HCPCS: 73110

== ENCOUNTER 2024-01-14 15:00 | Outpatient (RCR) | payer OTHER, SELFPAY ==
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
== END 2024-01-14 15:05 | disposition home or self-care (01) ==
LOC: OT 15:00
PROVIDERS: Visit Provider Physician Assistant Surgical
DX: M25.532 Pain in left wrist (principal); S52.512D Displaced fracture of left radial styloid process, subsequent encounter for closed fracture with routine healing
CPT/HCPCS: 97010; 97014; 97110; 97140; 97164; 97166; G0283

== ENCOUNTER 2024-01-20 14:34 | Outpatient (CLI) | payer OTHER, SELFPAY ==
--- NOTE | 2024-01-20 14:36 | XR_ITS ---
FINAL REPORT CLINICAL HISTORY: lt wrist pain COMPARISON: 12/09/2023 FINDINGS: AP, oblique, and lateral views of the left wrist were obtained. There is no change in the appearance of the subacute or chronic radial styloid process fracture. Scapholunate distance is widened, scapholunate ligament tear is not excluded. The soft tissues are normal. IMPRESSION: No change in the radial styloid process fracture. Widening of the scapholunate distance, scapholunate ligament tear is not excluded. Reviewed, Interpreted and Dictated by Gladys Hanks MD Transcribed by Martina Soto Authenticated and . [facility]
== END 2024-01-20 23:59 | disposition home or self-care (01) ==
LOC: RAD 14:35
PROVIDERS: PCP Nurse Practitioner Family; Visit Provider Physician Assistant
DX: M25.532 Pain in left wrist (principal); S52.512D Displaced fracture of left radial styloid process, subsequent encounter for closed fracture with routine healing
CPT/HCPCS: 73110